=== PATIENT | male | born 1995 | race Caucasian/White ===

== ENCOUNTER 2022-01-23 12:10 | Emergency (ER) | payer SELFPAY ==
[~2022-01-23] VITALS: Ht 170.2 cm; Wt 77.1 kg
[2022-01-23 12:14] VITALS: BP_SYST 136
--- NOTE | 2022-01-23 12:15 | NUR ---
DR PEREZ BY AMBULANCE TO SEE PT.
[2022-01-23] MEDS ORDERED: ALPRAZolam 0.25 MG TABLET PO ONE (12:30)
--- NOTE | 2022-01-23 12:38 | NUR ---
PT PLACED IN HALLWAY BED 1.
--- NOTE | 2022-01-23 12:45 | NUR ---
MEDICATED ORDERED, WILL CONT TO MONITOR
--- NOTE | 2022-01-23 13:17 | NUR ---
PT TO XRAY
[2022-01-23] MEDS ORDERED: ALPR0.5T PO (14:08)
--- NOTE | 2022-01-23 14:14 | NUR ---
Patient given written and verbal discharge instructions and verbalizes understanding. ER MD discussed with patient the results and treatment provided. Patient in stable condition. ID arm band removed. Rx of XANAX given. Patient educated on pain management and to follow up with PMD. Pain Scale . Opportunity for questions provided and answered. Medication side effect fact sheet provided.
[2022-01-23 14:15] VITALS: BP_SYST 136
== END 2022-01-23 14:15 | disposition home or self-care (01) ==
LOC: SED 12:10
DX: R06.4 Hyperventilation (principal); R06.02 Shortness of breath; F41.9 Anxiety disorder, unspecified; Z79.899 Other long term (current) drug therapy
CPT/HCPCS: 71045; 93005; 99283